=== PATIENT | male | born 1955 | race Caucasian/White ===

== ENCOUNTER 2022-10-21 14:11 | Inpatient (IN) | payer MEDICARE, MEDICAID, SELFPAY ==
[2022-10-21 14:35] VITALS: BP 104/79; PULSE 93; RESP 16; TEMP 36.4; O2SAT 98
--- NOTE | 2022-10-21 14:39 | ADMGEN ---
This patient, Woodrow Shen, was admitted to 2nd Floor Room 204-2. Patient/family oriented to hospital policies and general routines including ID bracelet, bed and alarms, visiting hours, pain management, procedures, bathroom and other care routines, personal items, smoking policy, room service/diet, and visiting hours. Information on how to activate the Rapid Response Team has been discussed. Patient/Family are encouraged to report perceived risks to care and to ask questions if they do not understand what they are told or what they should do.
[2022-10-21 14:42] VITALS: BMI 16.0
--- NOTE | 2022-10-21 15:39 | PC.NURSE ---
Patient spoke at length. Patient refuses to drink thickened liquids. Refused to allow photos to be taken of redness and breakdown on sacrum. Dietary spoke with patient at lenght regarding dietary orders and restrictions. Patient is refusing all tube feedings today. Stated he will not drink any liquids if they are thickened
[2022-10-21 16:00] VITALS: BP 128/74; PULSE 91; RESP 18; TEMP 36.4; O2SAT 98
--- NOTE | 2022-10-21 16:58 | PC.NURSE ---
PEG tube flushed without difficulty
[2022-10-21 20:00] VITALS: PULSE 91; RESP 18; O2SAT 98
[2022-10-21] MEDS: traZODone HCL 25 MG TABLET PO (20:55)
[2022-10-21] MEDS: ACETAMINOPHEN 325 MG TABLET 650 MG PO (20:55)
[2022-10-21] MEDS: ZOLPIDEM TARTRATE (*CRX) 5 MG TABLET PO (20:57)
[2022-10-22] VITALS: BP 120/73; PULSE 83; RESP 16; TEMP 36.3; O2SAT 96
[2022-10-22 07:55] VITALS: BP 119/81; PULSE 87; RESP 16; TEMP 36.5; O2SAT 97
[2022-10-22] MEDS: THIAMINE HCL 100 MG TABLET PO (09:45)
--- NOTE | 2022-10-22 09:47 | PM.IMHP ---
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 Pt had originally presented to his PCP weeks ago with complaints of cough and drainage in his throat and was dx'd with a PNA. After imaging it was found that he had a Naso-oropharyngeal mass and he was transferred to [facility] in [facility]. There it was established that the pt endorsed a recent weight loss of 20+lbs in a matter of just over a week. The pt. underwent imaging and speech eval. It it thought that he aspirated and that was what caused his PNA as he has the mass that was obstructing his swallow. His imaging with MRI demonstrated extensive stage 4A, inoperable metastasis to the cervical spine and to the meningeal surfaces on the neck and the brain. He was evaulated by Dr. Whitmore, Oncology and the recommendation was palliative care, however, pt. wants to pursue treatment at this time with Chemo and radiation therapies. As pt. is very thin at 49.3 kg and he has impaired swallowing/appetite accompanied with his weight loss, he has been placed on a pureed diet and had a G-tube placed for initiation of Tube feedings. He is to receive Jeevity 1.5 360 ml 3-4 times daily with 50 ml free water flush afterward. He has previously completed his Zosyn/Augmentin for his PNA. His family thought it best to have a brief time of Rehab and strengthening prior to him starting Chemo and Radiation, so he presents here to [facility] program. This morning pt. is examined at the bedside and appears to be very thin, cachectic, and emotional. He has labile emotions going from speaking of his determination of fighting his cancer to becoming tearful talking about his diagnosis. He reports that he is scared of his bathroom. He cannot identify why as in scared of falling, or what it is that he may be scared of, but he notes he is scared and he will be working with PT today and is determined to walk into the bathroom today and confront his fear. He denies any pain, and he denies any dyspnea. Pt. is adamant that he will only have three TF's today, not four as he states it was agreed between him and the physician in [place]. He also will not comply with the honey thickened liquids recommendation for liquid hydration. Review of Systems Review of Systems: All systems reviewed & are unremarkable except as noted in HPI and below PMFSH Past Medical History Medical History (Updated 10/22/22 @ 10:26 by SHERI De La Garza) Alcohol abuse Aspiration pneumonia Fall GI bleed Pancreatitis Subarachnoid hemorrhage Surgical History Surgical History Hx of craniotomy Social History Social History Smoking packs per day: 1 Smoking cigarettes per day: 20.0 Smoking status: Former smoker Second hand tobacco smoke exposure: Yes Alcohol intake: former Substance use: current Substance use type: marijuana Lack of Transportation: YES Lack of Food: Never True Current Housing: I Have Housing Concerned About Future Housing: No Difficulty Paying Gas/Electric Bills: No Difficulty Paying for Meds: No Currently Unemployed: No Education: Grade School Difficulty w/ Childcare or Family Care: No Spiritual care concerns: No Meds Home Medications and Allergies Home Medications Medication Instructions Recorded Confirmed Type thiamine HCl (vitamin B1) 100 mg 100 mg PO DAILY
--- NOTE | 2022-10-22 13:20 | PC.NURSE ---
This nurse spoke with speech therapist Анна about patient liking ensure and icecream 'milk shake'. ST okayed for patient to have shake PO. Patient did well with the thickness of shake. Patient has only had the shake for oral fluids today.
[2022-10-22] MEDS: ENOXAPARIN 30 MG/0.3 ML SYRINGE SUB-Q (15:00)
[2022-10-22 16:40] VITALS: BP 126/69; PULSE 96; RESP 16; TEMP 36.6; O2SAT 95
[2022-10-22] MEDS: traZODone HCL 25 MG TABLET PO (20:31)
[2022-10-22] MEDS: ZOLPIDEM TARTRATE (*CRX) 5 MG TABLET PO (20:31)
[2022-10-22 23:03] VITALS: BP 120/73; PULSE 85; RESP 17; TEMP 36.7; O2SAT 96
[2022-10-23 07:57] VITALS: BP 136/81; PULSE 85; RESP 14; TEMP 36.7; O2SAT 96
[2022-10-23 16:00] VITALS: BP 139/84; PULSE 80; RESP 16; TEMP 36.6; O2SAT 98
--- NOTE | 2022-10-23 18:20 | PC.NURSE ---
PT reports the condom cath fell off during walk, new cath applied with skin prep, pt in bed, feeding running, no complaints at this time, call light in reach
--- NOTE | 2022-10-23 19:18 | PC.NURSE ---
pt ate 100% of dinner and had requested 1600 feeding be held until 1800, feeding is finished, tubing flushed, pt requests his 1999 feeding be held as he is feeling very full
[2022-10-23] MEDS: ZOLPIDEM TARTRATE (*CRX) 5 MG TABLET PO (20:07)
[2022-10-23] MEDS: traZODone HCL 25 MG TABLET PO (20:07)
[2022-10-23] MEDS: MICONAZOLE NITRATE 2% CREAM 30 GM TUBE 1 APPLIC TOPICAL (20:11)
[2022-10-24] VITALS: BP 140/68; PULSE 76; RESP 20; TEMP 36.4; O2SAT 99
[2022-10-24 08:00] VITALS: BP 134/74; PULSE 78; RESP 18; TEMP 36.9; O2SAT 96
[2022-10-24] MEDS: THIAMINE HCL 100 MG TABLET PO (09:07)
[2022-10-24] MEDS: ENOXAPARIN 30 MG/0.3 ML SYRINGE SUB-Q (09:08)
--- NOTE | 2022-10-24 10:24 | PM.EVENT ---
Event Note Event Note Event Note: patient refused to allow energy systems laboratory director to draw labs to monitor potassium level. it was explained to patient that if he could not review and evaluate his potassium level it could affect his cardiac system. Patient still refuses states that is something happens to my heart is my fault
--- NOTE | 2022-10-24 13:19 | PC.NURSE ---
will not get out of bed today for meals. but did sit on side of bed for meals. will let us keep hob up after oral and tf with encouragement. nursing home assistant here at bedside. watched am feeding. questions asked and answered. lunch feeding she again asked and questions answered. did tf with staff watching and assisting as needed. very little to no residual noted. encouraged to use urinal or up to br. explained the need to learn how to apply condom cath if he will be alone at home. claims he will not learn because at home he will get up and go. this is just for ease he claims.
[2022-10-24 16:00] VITALS: BP 150/88; PULSE 84; RESP 20; TEMP 36.6; O2SAT 95
[2022-10-24 19:48] VITALS: PULSE 84; RESP 20; O2SAT 95
[2022-10-24] MEDS: ACETAMINOPHEN 325 MG TABLET 650 MG PO (21:23)
[2022-10-24] MEDS: ZOLPIDEM TARTRATE (*CRX) 5 MG TABLET PO (21:23)
[2022-10-24] MEDS: traZODone HCL 25 MG TABLET PO (21:23)
[2022-10-24] MEDS: MICONAZOLE NITRATE 2% CREAM 30 GM TUBE 1 APPLIC TOPICAL (21:32)
[2022-10-25] VITALS: BP 135/80; PULSE 80; RESP 16; TEMP 36.2; O2SAT 98
--- NOTE | 2022-10-25 06:30 | PC.NURSE ---
360mL Tube feeding bolus ran early per pt request, 50mL flush before and after, tolerated well.
[2022-10-25 08:00] VITALS: BP 134/74; PULSE 78; RESP 18; TEMP 36.6; O2SAT 98
[2022-10-25] MEDS: ENOXAPARIN 30 MG/0.3 ML SYRINGE SUB-Q (08:57)
[2022-10-25] MEDS: THIAMINE HCL 100 MG TABLET PO (08:57)
[2022-10-25] MEDS: MICONAZOLE NITRATE 2% CREAM 30 GM TUBE 1 APPLIC TOPICAL ×2 (08:58→20:47)
[2022-10-25 16:00] VITALS: BP 128/86; PULSE 90; RESP 16; TEMP 36.6; O2SAT 96
--- NOTE | 2022-10-25 16:55 | PC.NURSE ---
pt requests to hold 1600 feeding so that he may eat dinner without feeling overly full, agrees to do the 2000 feeding still , call light in reach
[2022-10-25] MEDS: ZOLPIDEM TARTRATE (*CRX) 5 MG TABLET PO (20:47)
[2022-10-25] MEDS: traZODone HCL 25 MG TABLET PO (20:47)
[2022-10-26] VITALS: BP 152/83; PULSE 81; RESP 18; TEMP 36.4; O2SAT 95
[2022-10-26 08:00] VITALS: BP 160/85; PULSE 86; RESP 14; TEMP 37; O2SAT 96
[2022-10-26 15:35] VITALS: BP 145/85; PULSE 82; RESP 16; TEMP 36.8; O2SAT 97
[2022-10-26] MEDS: ZOLPIDEM TARTRATE (*CRX) 5 MG TABLET PO (20:40)
[2022-10-26 23:52] VITALS: BP 149/80; PULSE 81; RESP 18; TEMP 36.7; O2SAT 97
--- NOTE | 2022-10-27 07:21 | PM.DS ---
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 endorses full code status - Follow up with Dr. Whitmore on discharge. Pt. insistent upon doing Chemo and Radiation. - Dysphagia diet with honey thickened liquids, and pureed diet. - Supplemental TF feedings with Jevity 1.5 360 ml followed by 50 ml free water flushes. - Daily weight - Strict I&O - Concern for possible progression to failure to thrive. Monitor closely especially in the setting of recent Aspiration PNA. - Aspiration precautions (2) Weakness: Code(s): R53.1 - Weakness Status: Acute Assessment and Plan: - PT, OT, ST eval. and treat - Fall precautions - Daily weight - Accurate I&O - Monitor labs and VS. Plan Pt. recently treated for Aspiration PNA and finished course of Zosyn/Augmentin. He is at high risk for recurrence as he is non-compliant with dietary therapy and recommendations. Will need to continually monitor. DS: Summary Hospital Course Reason for hospitalization: rehab Hospital Course: this is 67-year-old? male patient with significant past medical history basal? 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 Pt had originally presented to his PCP weeks ago with complaints of cough and drainage in his throat and was dx'd with a PNA. After imaging it was found that he had a Naso-oropharyngeal mass and he was transferred to [facility] in [facility]. There it was established that the pt endorsed a recent weight loss of 20+lbs in a matter of just over a week. The pt. underwent imaging and speech eval. It was thought that he aspirated and that was what caused his PNA as he has the mass that was obstructing his swallow. His imaging with MRI demonstrated extensive stage 4A, inoperable metastasis to the cervical spine and to the meningeal surfaces on the neck and the brain. He was evaulated by Dr. Nayani, Oncology and the recommendation was palliative care, however, pt. wants to pursue treatment at this time with Chemo and radiation therapies. As pt. is very thin at 49.3 kg and he has impaired swallowing/appetite accompanied with his weight loss, he has been placed on a pureed diet and had a G-tube placed for initiation of Tube feedings. He is to receive Jevity 1.5 360 ml 3-4 times daily with 50 ml free water flush afterward. The patient denies SOB, CP, palpitation, extremity numbness, lightheadedness, dizziness, constipation, diarrhea, chills, or fever. Patient will discharge home with instructions for for tube feeding he agrees he is ready for discharge he will follow-up with oncology for treatment. Time Spent with Patient Time attestation: Total time spent providing and/or coordinating discharge services: Exam Const: General: comfortable Other: Frail, cachectic male patient lying supine in bed at this time in no acute distress. HENMT: Ears: TM's normal bilaterally Face/Nose/Sinus: Normal nares present and no epistaxis Mouth: Yes moist mucous membranes Eyes: General: appearance normal, both eyes and all related structures Neck: Neck: supple and no JVD Carotids: no bruits Lymphatic: lymphadenopathy not noted Chest: Other: Non-tender to palpation Resp: Effort & Inspection: normal respiratory effort Auscultation: diminished lung sounds bilateral (bases) Cardio: Rate: regular rate Rhythm: regular rhythm Heart sounds: no gallops, no murmurs and no rubs GI: Inspection: non-distended Auscultation: normal bowel sounds
[2022-10-27 08:00] VITALS: BP 147/80; PULSE 74; RESP 14; TEMP 36.3; O2SAT 99
--- NOTE | 2022-10-27 11:04 | PC.NURSE ---
Pt discharged home. VSS. Both pt and CG given discharge instructions regarding: G Tube care and dressing changes, tube feedings, medications, activity and S&S to report to PCP or return to ER. Both pt and CG verbalized understanding.
--- NOTE | 2022-10-28 11:33 | PC.NURSE ---
Pt states he received and understood his discharge instructions. Pt states I can't say enough about your staff and the hospital, everyone, they were all fantastic .
== END 2022-10-27 09:30 | disposition home health service (06) | DRG 147 ==
PROVIDERS: Admitting Provider Internal Medicine; Visit Provider Nurse Practitioner Adult Health
DX: C10.9 Malignant neoplasm of oropharynx, unspecified (principal); C79.32 Secondary malignant neoplasm of cerebral meninges; C79.49 Secondary malignant neoplasm of other parts of nervous system; R64 Cachexia; Z68.1 Body mass index [BMI] 19.9 or less, adult; R53.1 Weakness; F10.10 Alcohol abuse, uncomplicated; Z87.891 Personal history of nicotine dependence; Z93.1 Gastrostomy status
CPT/HCPCS: 92526; 92610; 97110; 97116; 97161; 97165; 97530; 97535; A9270; J1650